=== PATIENT | female | born 1985 | race Caucasian/White ===

== ENCOUNTER → 2022-01-05 | Outpatient (CLI) | payer OTHER ==
[~2022-01-05] MED LIST: CEPH500 PO; DOXY100 PO; HYDACE5 PO; METR500 PO; MULVITMINE
[2022-01-05 15:14] LABS: Percent Saturation 18.8 % (15.0-50.0)
== END | disposition home or self-care (01) ==
LOC: LAB 13:12 → LAB SHORT 13:12
PROVIDERS: Internal Medicine Hematology & Oncology
DX: E61.1 Iron deficiency (principal)
CPT/HCPCS: 82728; 83540; 83550